=== PATIENT | female | born 1955 | race Caucasian/White ===

== ENCOUNTER → 2024-07-13 | Outpatient (CLI) | payer MEDICARE, OTHER ==
[~2024-07-13] MED LIST: FELDENE20 MG PO; METAMUCIL1 PDR PO; TYLENOL EXTRA500 M1; ZYRTEC 10MG10 MG PO
== END ==
LOC: MHCPAIN 10:00
DX: M43.12 Spondylolisthesis, cervical region (principal); M47.812 Spondylosis without myelopathy or radiculopathy, cervical region; M48.02 Spinal stenosis, cervical region; G89.29 Other chronic pain
CPT/HCPCS: G0463